=== PATIENT | female | born 1970 | race Caucasian/White ===

== ENCOUNTER 2023-01-20 19:23 | Emergency (ER) | payer MEDICAID ==
[~2023-01-20] VITALS: Ht 165.1 cm; Wt 78.0 kg
[2023-01-20 19:36] VITALS: O2SAT 100
[2023-01-20] MEDS ORDERED: NAPR-1129 MT (20:44)
[2023-01-20 20:45] VITALS: BP 148/96
[2023-01-20] MEDS ORDERED: LIDOCAINE 5% PATCH TOP SCH (20:45)
[2023-01-20] MEDS ORDERED: IBUPROFEN 600MG TABLET PO ONE (20:45)
[2023-01-20 21:00] VITALS: PULSE 98; RESP 18; TEMP 98.3
== END 2023-01-20 23:40 | disposition home or self-care (01) ==
LOC: ER 19:23
DX: M54.2 Cervicalgia (principal); G89.11 Acute pain due to trauma; F41.9 Anxiety disorder, unspecified; V49.59XA Passenger injured in collision with other motor vehicles in traffic accident, initial encounter; Y93.89 Activity, other specified; Y92.89 Other specified places as the place of occurrence of the external cause; Y99.8 Other external cause status
CPT/HCPCS: 81025; 99283